=== PATIENT | female | born 1960 | race Caucasian/White ===

== ENCOUNTER 2016-08-16 17:25 | Emergency (ER) | payer MEDICARE, MEDICAID ==
[~2016-08-16] VITALS: Ht 172.7 cm; Wt 110.0 kg
[~2016-08-16 17:25] MED LIST: LORA10TA PO; MELO7.5T PO; OMEP40CA2 PO; SERO50TA4 PO; TAB-TAB PO; Z.0.UNKNOWN
[2016-08-16 17:27] VITALS: BP 197/91; PULSE 85; RESP 16; TEMP 98.2; O2SAT 96
[2016-08-16] MEDS ORDERED: CITA20TA4 PO (20:29)
[2016-08-16] MEDS ORDERED: MELO7.5T4 PO (20:29)
[2016-08-16] MEDS ORDERED: QUET1TAB8 PO (20:29)
[2016-08-16] MEDS ORDERED: OMEP40CA2 PO (20:29)
[2016-08-16] MEDS ORDERED: OXYB5TAB10 PO (20:29)
[2016-08-16] MEDS ORDERED: FERR325T PO (20:29)
[2016-08-16] MEDS ORDERED: RESP: LIDOCAINE HCL 4% PF 5 ML NEB NEB ONE (20:30)
[2016-08-16] MEDS ORDERED: methylPREDNISolone SOD SUCC 125 MG/2 ML VIAL IVP ONE (20:30)
[2016-08-16] MEDS ORDERED: SODIUM CHLORIDE 0.9% FLUSH 5 ML FLUSH IVF PRN (20:30)
--- NOTE | 2016-08-16 20:32 | PD ---
HPI Chief Complaint: Cold / Flu Symptoms Time Seen by Provider: 20:20 Travel History International Travel<30 days: No Contact w/Intl Traveler<30days: No Traveled to known affect area: No History of Present Illness HPI The patient is a 56-year-old female who presents emergency department for cough and cold symptoms. The patient has cough and cold symptoms for the last 3-4 days. The patient complains of a dry nonproductive cough, anterior chest wall pain secondary to coughing, and intermittent wheezing. The patient also complains of myalgias, sore throat, and nasal congestion. The patient did receive her influenza vaccination this year. The patient denies any nausea, vomiting, diarrhea, abdominal pain, or dysuria. The patient denies any history of tobacco use, however, does have a history of bronchitis and asthma as a child. The symptoms are moderate, possibly exacerbated by recent upper respiratory infection that her grandchild had, and there are no current alleviating factors. PFSH Past Medical History Bipolar Disorder: Yes (STOPPED TAKING MEDS 2-3 MONTHS AGO PER [facility].) GERD: Yes Psychiatric: Yes Respiratory: Yes (BRONCHITIS) Influenza Vaccination: Yes ?: Not Social History Alcohol Use: No Tobacco Use: No Substance Use: No Allergies-Medications (Allergen,Severity, Reaction): Coded Allergies: No Known Allergies (Verified Allergy, Mild, 04/04/08) Reported Meds & Prescriptions Reported Meds & Active Scripts Active Ventolin Hfa 18 GM Inh (Albuterol Sulfate) 90 Mcg/Act Aer 2 Puff INH Q4H PRN Deltasone (Prednisone) 20 Mg Tab 40 Mg PO DAILY 4 Days Tamiflu (Oseltamivir Phosphate) 75 Mg Cap 75 Mg PO BID 5 Days Reported Ditropan (Oxybutynin Chloride) 5 Mg Tab 5 Mg PO QID Ferrous Sulfate 325 Mg Tab 325 Mg PO TID Omeprazole 40 Mg Cap 40 Mg PO DAILY Quetiapine (Quetiapine Fumarate) 100 Mg Tab 100 Mg PO BID Citalopram (Citalopram Hydrobromide) 20 Mg Tab 20 Mg PO DAILY Meloxicam 7.5 Mg Tab 7.5 Mg PO DAILY Review of Systems Except as stated in HPI: all other systems reviewed are Neg General / Constitutional: No: Fever HENT: Positive: Congestion Cardiovascular: Positive: Chest Pain or Discomfort (secondary to coughing) Respiratory: Positive: Cough, Shortness of Breath, Wheezing Gastrointestinal: No: Nausea, Vomiting, Diarrhea, Abdominal Pain Genitourinary: No: Dysuria Musculoskeletal: Positive: Myalgias Physical Exam Narrative GENERAL: Awake, alert, pleasant 56-year-old female who appears her stated age and is in no acute respiratory distress. SKIN: Warm and dry. HEAD: Atraumatic. Normocephalic. EYES: Pupils equal and round. No scleral icterus. No injection or drainage. ENT: No nasal bleeding or discharge. No visible teeth. Posterior oropharynx reveals erythema but no exudate. NECK: Trachea midline. No JVD. CARDIOVASCULAR: Regular rate and rhythm. No murmur appreciated. Heart rate in the 90s. RESPIRATORY: No accessory muscle use. Scattered wheezes and rhonchi. GASTROINTESTINAL: Abdomen soft, non-tender, nondistended. No rebound tenderness. MUSCULOSKELETAL: No obvious deformities. No clubbing. No cyanosis. No edema. NEUROLOGICAL: Awake and alert. No obvious cranial nerve deficits. Motor grossly within normal limits. Normal speech. PSYCHIATRIC: Appropriate mood and affect; insight and judgment normal. Data Data Last Documented VS Vital Signs Date Time Temp Pulse Resp B/P Pulse Ox O2 Delivery O2 Flow Rate FiO2 08/16/16 20:57 94 Nasal Cannula 2.00 08/16/16 20:36 78 17 191/79 08/16/16 17:27 98.2 Orders Complete Blood Count With Diff (08/16/16 20:27) Basic Metabolic Panel (Bmp) (08/16/16 20:27) B-Type Natriuretic Peptide (08/16/16 20:27) Ckmb (Isoenzyme) Profile (08/16/16 20:27) Troponin I (08/16/16 20:27) Influenzae A/B Antigen (08/16/16 20:27) Iv Access Insert/Monitor (08/16/16 20:27) Electrocardiogram (08/16/16 20:27) Ecg Monitoring (08/16/16 20:27) Oximetry (08/16/16 20:27) Oxygen Administration (08/16/16 20:27) Chest, Single Ap (08/16/16 20:27) Sodium Chloride 0.9% Flush (Ns Flush) (08/16/16 20:30) Methylprednisolone So Succ Inj (Solumedr (08/16/16 20:30) Albuterol-Ipratropium Neb (Duoneb Neb) (08/16/16 20:30) Lidocaine Pf 4% Neb (Lidocaine Pf 4% Neb (08/16/16 20:30) Labs Laboratory Tests Test 08/16/16 20:30 White Blood Count 8.1 TH/MM3 Red Blood Count 5.01 MIL/MM3 Hemoglobin 15.3 GM/DL Hematocrit 43.7 % Mean Corpuscular Volume 87.3 FL Mean Corpuscular Hemoglobin 30.4 PG Mean Corpuscular Hemoglobin 34.9 % Concent Red Cell Distribution Width 12.7 % Platelet Count 207 TH/MM3 Mean Platelet Volume 6.9 FL Neutrophils (%) (Auto) 67.7 % Lymphocytes (%) (Auto) 15.0 % Monocytes (%) (Auto) 9.3 % Eosinophils (%) (Auto) 7.5 % Basophils (%) (Auto) 0.5 % Neutrophils # (Auto) 5.5 TH/MM3 Lymphocytes # (Auto) 1.2 TH/MM3 Monocytes # (Auto) 0.7 TH/MM3 Eosinophils # (Auto) 0.6 TH/MM3 Basophils # (Auto) 0.0 TH/MM3 CBC Comment DIFF FINAL Differential Comment Sodium Level 139 MEQ/L Potassium Level 3.6 MEQ/L Chloride Level 102 MEQ/L Carbon Dioxide Level 31.6 MEQ/L Anion Gap 5 MEQ/L Blood Urea Nitrogen 10 MG/DL Creatinine 0.98 MG/DL Estimat Glomerular Filtration 59 ML/MIN Rate Random Glucose 91 MG/DL Calcium Level 8.2 MG/DL Total Creatine Kinase 52 U/L Troponin I LESS THAN 0.02 NG/ML B-Type Natriuretic Peptide 18 PG/ML MDM Medical Decision Making Medical Screen Exam Complete: Yes Emergency Medical Condition: Yes Medical Record Reviewed: Yes Interpretation(s) EKG reveals normal sinus rhythm with a rate 86. Nonspecific T wave changes. Last Impressions Chest X-Ray 08/16/162026 Signed Impressions: Service Date/Time: July 20:37 - CONCLUSION: No evidence of acute cardiopulmonary disease. Orlando Garrison MD Laboratory Tests Test 08/16/16 20:30 White Blood Count 8.1 TH/MM3 Red Blood Count 5.01 MIL/MM3 Hemoglobin 15.3 GM/DL Hematocrit 43.7 % Mean Corpuscular Volume 87.3 FL Mean Corpuscular Hemoglobin 30.4 PG Mean Corpuscular Hemoglobin 34.9 % Concent Red Cell Distribution Width 12.7 % Platelet Count 207 TH/MM3 Mean Platelet Volume 6.9 FL Neutrophils (%) (Auto) 67.7 % Lymphocytes (%) (Auto) 15.0 % Monocytes (%) (Auto) 9.3 % Eosinophils (%) (Auto) 7.5 % Basophils (%) (Auto) 0.5 % Neutrophils # (Auto) 5.5 TH/MM3 Lymphocytes # (Auto) 1.2 TH/MM3 Monocytes # (Auto) 0.7 TH/MM3 Eosinophils # (Auto) 0.6 TH/MM3 Basophils # (Auto) 0.0 TH/MM3 CBC Comment DIFF FINAL Differential Comment Sodium Level 139 MEQ/L Potassium Level 3.6 MEQ/L Chloride Level 102 MEQ/L Carbon Dioxide Level 31.6 MEQ/L Anion Gap 5 MEQ/L Blood Urea Nitrogen 10 MG/DL Creatinine 0.98 MG/DL Estimat Glomerular Filtration 59 ML/MIN Rate Random Glucose 91 MG/DL Calcium Level 8.2 MG/DL Total Creatine Kinase 52 U/L Troponin I LESS THAN 0.02 NG/ML Date/Time Procedure Status Source Growth 08/16/16 20:30 Influenza Types A,B Antigen (ELY) - Final Complete Nasal Aspirate Positive For Flu A Antigen Differential Diagnosis Differential diagnosis includes influenza, viral syndrome, URI, bronchitis, pneumonia, congestive heart failure, acute coronary syndrome, pulmonary embolism. Narrative Course IV was established, labs are drawn and sent, and the patient was placed on cardiac telemetry monitoring and continuous pulse oximetry monitoring. EKG was ordered and interpreted. Chest x-ray was ordered. The patient was administered Solu-Medrol 125 mg intravenously and duo nebs with respiratory lidocaine. Influenza screen was sent to lab. Chest x-ray was negative. Influenza screen was positive for influenza A. EKG reveals nonspecific T wave changes. Patient appears to have secondary bronchitis for influenza A and will be treated with Tamiflu, albuterol inhaler, and prednisone. The patient is advised to follow-up with her primary physician and return if symptoms worsen or progress. The patient was reassessed at 9:45 PM, her symptoms had improved. The patient will be treated for her influenza secondary bronchitis. Return if symptoms worsen or progress. Diagnosis Primary Impression: Influenza A Additional Impression: Bronchitis Patient Instructions: General Instructions Additional Instructions: Medications as directed. Follow-up with your primary physician. Please provide the patient a copy of her chest x-ray results, the results, and lab results at discharge. Return if symptoms worsen or progress. Med/Other Pt SpecificInfo: Prescription(s) given Scripts Oseltamivir (Tamiflu)75 Mg Cap75 Mg PO BID 5 Days Ref 0 Prov:Alireza Vanessa MD 08/16/16 Albuterol 18 GM Inh (Ventolin Hfa 18 GM Inh)90 Mcg/Act Aer2 Puff INH Q4H PRN ( SHORTNESS OF BREATH) #1 INHALER Ref 0 Prov:Alireza Vanessa MD 08/16/16 Prednisone (Deltasone)20 Mg Tab40 Mg PO DAILY 4 Days Ref 0 Prov:Alireza Vanessa MD 08/16/16 Disposition: 01 DISCHARGE HOME Condition: Stable Alireza Vanessa MD Aug 16, 2016 20:31
[2016-08-16 20:36] VITALS: BP 191/79; PULSE 78; RESP 17; O2SAT 95
--- NOTE | 2016-08-16 20:44 | RADRPT ---
EXAM DATE/TIME: 08/16/2016 20:37 [facility] COMPARISON: No previous studies available for comparison. INDICATIONS : Shortness of breath. MEDICAL HISTORY : None. SURGICAL HISTORY : None. ENCOUNTER: Initial ACUITY: 2 days PAIN SCORE: 0/10 LOCATION: Bilateral chest FINDINGS: A single view of the chest demonstrates the lungs to be symmetrically aerated without evidence of mas s, infiltrate or effusion. The cardiomediastinal contours are unremarkable. Osseous structures are intact. CONCLUSION: No evidence of acute cardiopulmonary disease. Orlando Garrsion MD on August 16, 2016 at 20:42 Board Certified Radiologist. This report was verified electronically.
[2016-08-16 20:54] LABS: AUTOMATED NEUTROPHIL # 5.5 TH/MM3 (1.8-7.7); BASOPHIL % 0.5 % (0.0-2.0); EOSINOPHIL # 0.6 TH/MM3 (0-0.4); EOSINOPHIL % 7.5 % (0.0-4.0); HEMATOCRIT 43.7 % (35.0-46.0); HEMO FLAGS DIFF FINAL; LYMPHOCYTE # 1.2 TH/MM3 (1.0-4.8); MEAN CELL VOLUME 87.3 FL (80.0-100.0); MEAN CORPUSCULAR HEMOGLOBIN 30.4 PG (27.0-34.0); MEAN CORPUSCULAR HGB CONC 34.9 % (32.0-36.0); MONO % 9.3 % (0.0-8.0); NEUT % 67.7 % (16.0-70.0); PLATELET COUNT 207 TH/MM3 (150-450); RED BLOOD COUNT 5.01 MIL/MM3 (4.00-5.30); RED CELL DISTRIBUTION WIDTH 12.7 % (11.6-17.2); WHITE BLOOD COUNT 8.1 TH/MM3 (4.0-11.0)
[2016-08-16 20:57] VITALS: O2SAT 94
[2016-08-16] MEDS: RESP: ALBUTEROL 2.5 MG/IPRATROPIUM 0.5 MG NEB (SCH) INH ×2 (20:57→20:59)
[2016-08-16 21:06] LABS: ANION GAP 5 MEQ/L (5-15); BICARBONATE 31.6 MEQ/L (21.0-32.0); BLOOD UREA NITROGEN 10 MG/DL (7-18); CHLORIDE 102 MEQ/L (98-107); GLOMERULAR FILTRATION RATE 59 ML/MIN (>89); POTASSIUM 3.6 MEQ/L (3.5-5.1); SODIUM (NA) 139 MEQ/L (136-145)
[2016-08-16 21:13] LABS: CREATINE KINASE 52 U/L (26-192)
[2016-08-16] MEDS ORDERED: VENTAER INH (21:28)
[2016-08-16] MEDS ORDERED: OSEL75 PO (21:28)
[2016-08-16] MEDS ORDERED: PRED-503 PO (21:28)
[2016-08-16 22:08] VITALS: BP 170/95
--- NOTE | 2016-08-17 22:47 | EKG ---
Date Performed: 08/16/2016 Time Performed: 20:44:06 PTAGE: 56 years EKG: Sinus rhythm NONSPECIFIC T-WAVE ABNORMALITY BORDERLINE ECG PREVIOUS TRACING : 04/05/2008 06.31 DOCTOR: Nancy Solis Interpretating Date/Time 08/17/2016 22:43:29
== END 2016-08-16 22:19 | disposition home or self-care (01) ==
LOC: NEPC 17:25
DX: J10.1 Influenza due to other identified influenza virus with other respiratory manifestations (principal); J40 Bronchitis, not specified as acute or chronic; R94.31 Abnormal electrocardiogram [ECG] [EKG]
CPT/HCPCS: 71010; 80048; 82550; 83880; 84484; 85025; 87804; 93005; 94640; 94664; 96374; 99284; J2930